=== PATIENT | male | born 1980 | race Two or more races ===

== ENCOUNTER 2020-04-15 11:45 | Day surgery (SDC) | payer OTHER ==
[~2020-04-15] VITALS: Ht 195.6 cm; Wt 98.9 kg
[2020-04-15 12:09] VITALS: BP 137/70
[2020-04-15] MEDS ORDERED: PYRIDIUM200 M1 PO (15:36)
[2020-04-15] MEDS ORDERED: TOR10 PO (15:36)
[2020-04-15] MEDS ORDERED: BACTRIM DS1 TAB PO (15:37)
[2020-04-15 17:02] VITALS: BP 127/68
== END 2020-04-15 16:55 | disposition home or self-care (01) ==
LOC: DS 11:45 → OR 13:30 → DS 13:30
PROVIDERS: ATTEND Urology
DX: N13.2 Hydronephrosis with renal and ureteral calculous obstruction (principal); E11.9 Type 2 diabetes mellitus without complications; E78.00 Pure hypercholesterolemia, unspecified; I10 Essential (primary) hypertension; Z79.899 Other long term (current) drug therapy
CPT/HCPCS: C1769; C2625; J0696; J2250; J2405; J2704; J3010; J7030; Q9958; Q9967